=== PATIENT | female | born 1935 | race Caucasian/White ===

== ENCOUNTER 2021-03-25 22:50 | Inpatient (IN) | payer OTHER ==
[~2021-03-25] VITALS: Ht 157.5 cm; Wt 54.4 kg
[2021-03-26] MEDS ORDERED: NAMENDA 10MG TA10 MG PO ×2 (02:15)
[2021-03-26] MEDS ORDERED: ARICEPT 5MG TABL5 MG PO (02:15)
[2021-03-26] MEDS ORDERED: [UNRECOGNIZED DRUG - OTHER] PO (02:16)
[2021-03-26] MEDS ORDERED: VITAMIN B-121000 MC1 PO (02:17)
[2021-03-26] MEDS ORDERED: VITAMIN D PO (02:17)
[2021-03-26] MEDS ORDERED: SYNTHROID50 MCG PO (02:18)
[2021-03-26] MEDS ORDERED: IBANDRONATE SO150 MG PO (02:18)
[2021-03-26 05:56] LABS: BASOPHIL 0.5 % (0-2); EOSINOPHIL 0.2 % (0-7); HCT 33.6 % (37.0-47.0); HGB 10.6 g/dl (12.5-16.0); LYMPHOCYTE 17.5 % (15-48); MCH 31.5 pg (25.0-31.0); MCHC 31.5 g/dL (32.0-36.0); MONOCYTE 11.1 % (0-12); MPV 12.1 fL (6.0-9.5); NEUTROPHIL 70.7 % (41-80); NRBC 0; PLT 106 K/uL (150-400); RBC 3.36 M/uL (4.20-5.40); RDW 13.1 % (11.5-14.0); WBC 4.2 K/uL (4.0-10.5)
[2021-03-26 06:15] LABS: ALBUMIN 3.1 g/dL (3.4-5.0); BILIRUBIN - TOTAL 1.5 mg/dL (0.2-1.0); BUN/CREAT RATIO (CALC) 28.9 RATIO; CREATININE 0.83 mg/dL (0.51-0.95); GLOBULIN (CALCULATION) 3.3 g/dL; POTASSIUM 4.2 mmol/L (3.5-5.1); TOTAL PROTEIN 6.4 g/dL (6.4-8.2)
[2021-03-26] MEDS ORDERED: PERCOCET 5-3251 EACH PO (09:15)
--- NOTE | 2021-03-26 15:42 | NUR ---
1520 PATIENT TAKEN DOWN TO SURGERY WITH NEW VARELA
[2021-03-26 18:02] LABS: BILIRUBIN 1+ mg/dL (NEGATIVE); BLOOD NEGATIVE Ery/uL (NEGATIVE); CLARITY CLEAR (CLEAR); COLOR YELLOW (YELLOW); GLUCOSE (U) NORMAL (NORMAL); LEUKOCYTES NEGATIVE Leu/uL (NEGATIVE); NITRITE NEGATIVE (NEGATIVE); PROTEIN NEGATIVE (NEGATIVE); SPECIFIC GRAVITY >=1.030 (1.001-1.030); UROBILINOGEN 0.2 mg/dL (0.2-1.0); pH 5.5 (5.0-9.0)
[2021-03-27 06:36] LABS: BASOPHIL 0.2 % (0-2); EOSINOPHIL 0 % (0-7); HCT 28.9 % (37.0-47.0); LYMPHOCYTE 14.9 % (15-48); MCH 32.1 pg (25.0-31.0); MCHC 31.1 g/dL (32.0-36.0); MCV 103.2 fL (78.0-100.0); MONOCYTE 12.2 % (0-12); MPV 12.1 fL (6.0-9.5); NEUTROPHIL 72.3 % (41-80); NRBC 0; PLT 96 K/uL (150-400); RDW 13.2 % (11.5-14.0); WBC 4.7 K/uL (4.0-10.5)
[2021-03-27 08:44] LABS: BUN/CREAT RATIO (CALC) 26.8 RATIO; CREATININE 0.71 mg/dL (0.51-0.95); POTASSIUM 4.4 mmol/L (3.5-5.1)
[2021-03-28 06:20] LABS: BASOPHIL 0.4 % (0-2); EOSINOPHIL 1.7 % (0-7); HCT 25.6 % (37.0-47.0); HGB 8.2 g/dl (12.5-16.0); MCH 31.8 pg (25.0-31.0); MONOCYTE 11.2 % (0-12); MPV 12.6 fL (6.0-9.5); NEUTROPHIL 64.5 % (41-80); NRBC 0; PLT 90 K/uL (150-400); RBC 2.58 M/uL (4.20-5.40); RDW 12.9 % (11.5-14.0); WBC 4.6 K/uL (4.0-10.5)
[2021-03-28 06:22] LABS: MCV 99.2 fL (78.0-100.0)
--- NOTE | 2021-03-28 13:00 | NUR ---
PER YOSVANY, PT HAS BEEN ACCEPTED BY [facility] FOR TODAY, 03/28/21. PLEASE CALL REPORT TO [phone]. FAX D/C SUMMARY TO [phone]. ADVISED DAUGHTER, LINN, THAT PT. HAS BEEN ACCEPTED.
[2021-03-28] MEDS ORDERED: ASPIRIN EC81 MG PO (13:41)
[2021-03-28] MEDS ORDERED: PERCOCET 5-3251 EACH PO (14:41)
== END 2021-03-28 15:30 | DRG 482 ==
LOC: FMS 22:50
PROVIDERS: Nurse Practitioner; Orthopaedic Surgery; ADMIT Internal Medicine
PROC: 0QS704Z Reposition Left Upper Femur with Internal Fixation Device, Open Approach (ICD-10-PCS; principal; 2021-03-26 16:00)
DX: S72.142A Displaced intertrochanteric fracture of left femur, initial encounter for closed fracture (principal); F03.90 Unspecified dementia, unspecified severity, without behavioral disturbance, psychotic disturbance, mood disturbance, and anxiety; I35.0 Nonrheumatic aortic (valve) stenosis; E03.9 Hypothyroidism, unspecified; R01.1 Cardiac murmur, unspecified; H54.7 Unspecified visual loss; Z79.890 Hormone replacement therapy; Z79.899 Other long term (current) drug therapy; Z98.890 Other specified postprocedural states; W06.XXXA Fall from bed, initial encounter
CPT/HCPCS: 36415; 71045; 73501; 76000; 80048; 80053; 81003; 85025; 86850; 86900; 86901; 93005; 94010; 94760; 97110; 97162; 97166; 97530-GP; 97535; C1713; C9113; J0697; J1100; J2370; J2704; J3010; J7030; J7120